=== PATIENT | male | born 1975 | race Caucasian/White ===

== ENCOUNTER 2017-06-15 11:12 | Emergency (ER) | payer MEDICAID ==
--- NOTE | 2017-06-15 12:42 | EDPHY ---
H & P Smoking Status: Current every day smoker Time Seen by Provider: 06/15/17 12:29 HPI/ROS: CHIEF COMPLAINT: "I am here to detox from alcohol and benzos" HISTORY OF PRESENT ILLNESS: 41-year-old male self presents to the ER with his brother requesting detoxification from alcohol and benzodiazepines. Last drink of alcohol last evening, last benzodiazepine earlier this morning. Brother states that he called [facility] was told come to the ER for medical clearance prior to admission for medical detox. The patient denies suicidal or homicidal ideation. No seizure. No hallucination. No abnormal mentation. PHYSICAL EXAM (Prior to examination, patient consented to physical exam, hands were washed and my usual and customary physical exam procedures followed) 1) GENERAL: Well-developed, well-nourished, alert and oriented. Appears anxious. Tremulous 2) HEAD: Normocephalic 3) HEENT: sclera anicteric 4) LUNGS: Breathing comfortably. [ (Yared Waldrop) Constitutional: Initial Vital Signs Temperature (C) 37 C 06/15/17 11:23 Heart Rate 123 H 06/15/17 11:23 Respiratory Rate 20 06/15/17 11:23 Blood Pressure 124/97 H 06/15/17 11:23 O2 Sat (%) 94 06/15/17 11:23 O2 Delivery Mode Room Air Allergies/Adverse Reactions: No Known Allergies Allergy (Verified 06/15/17 11:22) Home Medications: Medication Instructions Recorded NK [No Known Home Meds] 04/06/15 MDM/Departure - MDM Medications Given: Discontinued Medications Lorazepam (Ativan) 1 mg PO EDNOW ONE Stop: 06/15/17 12:46 Last Admin: 06/15/17 12:49 Dose: 1 mg Lorazepam (Ativan) 1 mg PO EDNOW ONE Stop: 06/15/17 14:44 Last Admin: 06/15/17 14:47 Dose: 1 mg Lorazepam (Ativan) 1 mg PO EDNOW ONE Stop: 06/15/17 17:21 Last Admin: 06/15/17 17:31 Dose: 1 mg Nicotine (Nicoderm Cq) 21 mg TD EDNOW ONE Stop: 06/15/17 15:51 Last Admin: 06/15/17 15:55 Dose: 21 mg ED Course/Re-evaluation: 12:50 p.m.: [facility] has spoken with [facility] and they do have a detoxification bed available however they require mental health evaluation 1st. 4:40 p.m.: Mental health evaluation is pending. The patient is not suicidal or homicidal and does not meet criteria for 72 hour hold. He is in the ER voluntarily. 5:00 p.m.: Care the patient turned over to Dr. Madeline Rahman. (Yared Waldrop) 5:21 p.m. I assumed care of this patient from ANJU Valerio. Ordered 1mg PO Ativan for continued symptom relief. Mental health evaluation still pending. Discussed this patient with case management. (Madeline Rahman) I did not see this patient while he was in the emergency department. However his care was discussed with the PA while the patient was in the department. I agree with treatment plan and management (Hugo Gore) - Depart Disposition: Home, Routine, Self-Care Clinical Impression: Alcohol dependence, Benzodiazepine dependence Condition: Good Instructions: Benzodiazepine Abuse (ED), Alcohol Dependence (ED) Additional Instructions: Please follow up with EPS as directed. Referrals: YONAS LINDA [Other] - As per Instructions
[2017-06-15] MEDS ORDERED: LORazepam 1 MG TAB PO ONE ×3 (12:45→17:20)
[2017-06-15 13:28] LABS: % IMMATURE GRANULYOCYTES 0.2 % (0.0-1.1); ABSOLUTE IMMATURE GRANULOCYTES 0.02 10^3/uL (0.00-0.10); ADD DIFF? NO; ADD MORPH? NO; ADD SCAN? NO; ATYPICAL LYMPHOCYTE FLAG 0 (0-99); FRAGMENT RBC FLAG 0 (0-99); HEMATOCRIT 46.1 % (40.0-51.0); HEMOGLOBIN 16.7 g/dL (13.7-17.5); LEFT SHIFT FLG 0 (0-99); LIPEMIA HEMOLYSIS FLAG 90 (0-99); MEAN CELL HEMOGLOBIN 34.1 pg (27.9-34.1); MEAN CELL HEMOGLOBIN CONCENTR. 36.2 g/dL (32.4-36.7); MEAN CELL VOLUME 94.1 fL (81.5-99.8); MEAN PLATELET VOLUME 8.5 fL (8.7-11.7); PLATELET CLUMPS FLAG 0 (0-99); PLATELET COUNT 279 10^3/uL (150-400); RED CELL DISTRIBUTION WIDTH 12.8 % (11.5-15.2)
[2017-06-15 13:53] LABS: ANION GAP 19 mEq/L (8-16); CALCIUM 9.4 mg/dL (8.5-10.4); CARBON DIOXIDE 19 mEq/l (22-31); CHLORIDE 96 mEq/L (97-110); ETHANOL SERUM 89 mg/dL (0-10); GLOMERULAR FILTRATION RATE > 60; GLUCOSE 102 mg/dL (70-100); POTASSIUM 4.1 mEq/L (3.5-5.2); SODIUM 134 mEq/L (134-144)
[2017-06-15 14:39] VITALS: TEMP 98.8
[2017-06-15] MEDS ORDERED: NICOTINE 21 MG/24 HR PATCH TD ONE (15:50)
--- NOTE | 2017-06-15 17:26 | ASMTCMCOM ---
CM Note CM Note Notes: ER Case Management: Patient presents to the ER to request help with medical detox from alcohol and benzodiazapines. Patient has Medicaid and I have discussed resources/options with him, explaining that [facility] is not a medical detox facility. I have contacted Brunilda at [facility] who confirms that patient will need a [facility] assessment and referral for admission to their detox facility. Brunilda confirms that they have a bed available at this time (1400). Brunilda also confirms that if patient were to call intake directly, he would be scheduled out about 2 weeks before he would be admitted to detox. I have contacted Jose Maria at [facility] to request a referral dee for patient so as to facilitate acceptance to detox. Labs and urine detox ordered. Patient informed of process for admission to detox pending Medicaid approval. I have provided patient with the admission number for [facility] and informed him that I cannot guarantee that bed will still be available by the time a assessment/referral is completed. As of 1544 labs and toxicology has been completed. Patient does have a positive result for amphetamines which can delay assessment for up to 12 hours (if suspected METHamphetamine). I discussed this with the patient who tells me he did take an ADDerall yesterday and has not taken Meth. I spoke with Johan at [facility] who tells me she will do everything she can to have patient evaluated dee. Patient has been updated and informed of status of pending evaluation. [facility] contacted at this time and confirmed that a detox bed is still currently available. I again inquire about patient calling intake directly and [facility] confirms that if a patient is not coming directly from an ER with an evaluation, patient can only schedule an admission to detox for "about 2 weeks out". CM update (4695): Spoke with Johan at [facility] re evaluation. She assures me that she will get someone out [facility] to see patient. I have updated patient as well as Dr. Rahman. Patient is waiting for evaluation at this time and I have encouraged him to inform RN/MD of symptoms/anxiety as needed. Date Signed: 06/15/2017 05:25 PM Electronically Signed By:Sujatha Packer RN
[2017-06-15 17:35] VITALS: BP 127/74; PULSE 100; RESP 18; O2SAT 94
== END 2017-06-15 19:35 | disposition home or self-care (01) ==
DX: F19.20 Other psychoactive substance dependence, uncomplicated (principal); F10.20 Alcohol dependence, uncomplicated; F17.200 Nicotine dependence, unspecified, uncomplicated
CPT/HCPCS: 80305; G0480